=== PATIENT | female | born 1985 | race Caucasian/White ===

== ENCOUNTER 2018-04-08 18:29 | Emergency (ER) | payer BC ==
[2018-04-08] MEDS ORDERED: Sodium Chloride 0.9% 1,000 ML IV ONE (19:34)
[2018-04-08] MEDS ORDERED: Sodium Chloride 0.9% 10 ML Syringe FLUSH PRN (19:34)
[2018-04-08] MEDS ORDERED: LORazepam 2 MG/ML SDV IVPUSH ONE (19:34)
--- NOTE | 2018-04-08 22:30 | EDM.PDOC ---
ED HPI GENERAL MEDICAL PROBLEM - General Chief Complaint: Neurological Problem Stated Complaint: DIZZY/NUMB PARTS OF FACE Time Seen by Provider: 04/08/18 19:09 Source of Information: Reports: Patient History Limitations: Reports: No Limitations - History of Present Illness INITIAL COMMENTS - FREE TEXT/NARRATIVE: Patient is a 33-year-old female with a history of PMDD and hypothyroidism. Patient currently on sertraline and levothyroxine. She presents to the ED with a few day history of intermittent dizziness with standing with numbness and tingling to her lips and face. States has as of recent she's been under a lot more stress with taking care of foster kids at home and also with work. Patient works at home on the [email or web address] and states 17 coworkers were forced to retire or were laid off. She is under a lot more stress at work since she is doing more with less. She states she's never been stressed like this in her life before. States more days than not she is not excited about going to work. While at work she feels bland and is just doing her job. As she states she is just there. While working performing physical activities there are times when with standing she becomes dizzy, hot, and develops some tingling to her face and lips. Symptoms go away quickly with rest. She denies any difficulty walking, weakness to her upper and lower extremities, facial droop, slurred speech, vision changes , or difficulty swallowing. She denies any headaches, shortness of breath, chest pain, or fever. At times with the dizziness she experiences tunnel vision. There is no history of syncopal episode. She denies any palpitations or irregular heartbeat. She believes this most likely stress related. Last menstrual cycle was March 27, 2018. She does not smoke. Alcohol use is social. Recreational drug use none. She does not have a primary care provider here locally. - Related Data Allergies Allergy/AdvReac Type Severity Reaction Status Date / Time No Known Allergies Allergy Verified 04/08/18 18:38 Home Meds: Home Meds Levothyroxine 25 mcg PO DAILY 04/08/18 [History] Sertraline [Zoloft] 100 mg PO DAILY 04/08/18 [History] Past Medical History [employer] History: Reports: Social & Family History - Tobacco Use Smoking Status *Q: Never Smoker Second Hand Smoke Exposure: No - Caffeine Use Caffeine Use: Reports: Coffee - Recreational Drug Use Recreational Drug Use: No ED ROS GENERAL - Review of Systems Review Of Systems: See Below Constitutional: Reports: Decreased Appetite. Denies: Fever, Chills, Malaise, Weakness, Fatigue HEENT: Reports: No Symptoms Respiratory: Reports: No Symptoms Cardiovascular: Reports: No Symptoms GI/Abdominal: Reports: No Symptoms : Reports: No Symptoms Musculoskeletal: Reports: No Symptoms Skin: Reports: No Symptoms Neurological: Reports: Dizziness (no sensation of room spinning. ), Tingling ( face at times with increased stress. ). Denies: Headache Psychiatric: Reports: Anxiety. Denies: Depression ED EXAM, DIZZINESS - Physical Exam Exam: See Below Exam Limited By: No Limitations General Appearance: Alert, WD/WN, Anxious Eye Exam: Bilateral Eye: Normal Inspection, Nystagmus (none noted), PERRL Ears: Hearing Grossly Normal Nose: Normal Inspection Throat/Mouth: Normal Inspection, Normal Oropharynx, Normal Voice, No Airway Compromise Head Exam: Atraumatic, Normocephalic, Other (No sensory deficits noted on examination.) Neck: Normal Inspection, Supple, Non-Tender, Full Range of Motion Respiratory/Chest: No Respiratory Distress, Lungs Clear, Normal Breath Sounds, No Accessory Muscle Use, Chest Non-Tender Cardiovascular: Normal Peripheral Pulses, Regular Rate, Rhythm, No Murmur GI/Abdominal: Normal Bowel Sounds, Soft, Non-Tender Neurological: Alert, Normal Mood/Affect, Normal Dorsiflexion, CN II-XII Intact, Normal Plantar Flexion, Normal Gait, No Motor/Sensory Deficits, Oriented x 3, Other (No sensory deficits noted. No facial droop, slurred speech, tongue deviation. No weakness discrepancy as to the upper or lower extremities. Finger- nose a rapid alternating movements are intact. Gait is normal.) Back Exam: Normal Inspection Extremities: Normal Inspection, Non-Tender, No Pedal Edema Psychiatric: Normal Affect, Normal Mood Skin Exam: Warm, Dry, Intact, Normal Color Course - Vital Signs Last Recorded V/S: Last Vital Signs Temp 98.6 F 04/08/18 18:41 Pulse 82 04/08/18 18:41 Resp 20 04/08/18 22:40 BP 120/87 04/08/18 22:40 Pulse Ox 100 04/08/18 22:40 Orthostatic Blood Pressure [ 116/96 Standing] Orthostatic Blood Pressure [ 123/89 Sitting] Orthostatic Blood Pressure [ 123/71 Supine] - Orders/Labs/Meds Orders: Active Orders 24 hr Category Date Time Status Orthostatic Vital Signs [RC] ASDIRECTED Care 04/08/18 19:34 Active Peripheral IV Care [RC] . DIRECTED Care 04/08/18 19:34 Active Sodium Chloride 0.9% [Saline Flush] Med 04/08/18 19:34 Active 10 ml FLUSH ASDIRECTED PRN Peripheral IV Insertion Adult [OM.PC] Routine Oth 04/08/18 19:34 Ordered Medication Orders Sodium Chloride (Saline Flush) 10 ml FLUSH ASDIRECTED PRN PRN Reason: Keep Vein Open Last Admin: 04/08/18 19:56 Dose: 10 ml Labs: Laboratory Tests 04/08/18 04/08/18 04/08/18 Range/Units 19:30 19:30 20:06 WBC 9.59 (3.98-10.04) K/mm3 RBC 4.84 (3.98-5.22) M/mm3 Hgb 14.7 (11.2-15.7) gm/L Hct 43.6 (34.1-44.9) % MCV 90.1 (79.4-94.8) fl MCH 30.4 (25.6-32.2) pg MCHC 33.7 (32.2-35.5) g/dl RDW Std Deviation 41.6 (36.4-46.3) fL Plt Count 266 (182-369) K/mm3 MPV 9.9 (9.4-12.3) fl Neutrophils % (Manual) 52 (40-60) % Band Neutrophils % 0 (0-10) % Lymphocytes % (Manual) 40 (20-40) % Atypical Lymphs % 0 % Monocytes % (Manual) 4 (2-10) % Eosinophils % (Manual) 3 (0.7-5.8) % Basophils % (Manual) 1 (0.1-1.2) Platelet Estimate Adequate Plt Morphology Comment Normal RBC Morph Comment Normal Sodium (136-145) mEq/L Potassium (3.5-5.1) mEq/L Chloride (98-107) mEq/L Carbon Dioxide (21-32) mEq/L Anion Gap (5-15) BUN (7-18) mg/dL Creatinine (0.55-1.02) mg/dL Est Cr Clr Drug Dosing mL/min Estimated GFR (MDRD) (>60) mL/min BUN/Creatinine Ratio (14-18) Glucose (74-106) mg/dL Calcium (8.5-10.1) mg/dL Total Bilirubin (0.2-1.0) mg/dL AST (15-37) U/L ALT (14-59) U/L Alkaline Phosphatase (46-116) U/L C-Reactive Protein (<1.0) mg/dL Total Protein (6.4-8.2) g/dl Albumin (3.4-5.0) g/dl Globulin gm/dL Albumin/Globulin Ratio (1-2) TSH 3rd Generation (0.358-3.74) uIU/mL Urine Color Yellow (Yellow) Urine Appearance Clear (Clear) Urine pH 6.0 (5.0-8.0) Ur Specific [place] > or = 1.030 (1.005-1.030) Urine Protein Negative (Negative) Urine Glucose (UA) Negative (Negative) Urine Ketones Negative (Negative) Urine Occult Blood Negative (Negative) Urine Nitrite Negative (Negative) Urine Bilirubin Negative (Negative) Urine Urobilinogen 0.2 (0.2-1.0) Ur Leukocyte Esterase Negative (Negative) Urine RBC 0-5 (0-5) /hpf Urine WBC 0-5 (0-5) /hpf Ur Epithelial Cells 0-5 (0-5) /hpf Urine Bacteria Rare (FEW) /hpf Urine Mucus Not seen (FEW) /hpf Urine HCG, Qual Negative (NEGATIVE) 04/08/18 Range/Units 20:06 WBC (3.98-10.04) K/mm3 RBC (3.98-5.22) M/mm3 Hgb (11.2-15.7) gm/L Hct (34.1-44.9) % MCV (79.4-94.8) fl MCH (25.6-32.2) pg MCHC (32.2-35.5) g/dl RDW Std Deviation (36.4-46.3) fL Plt Count (182-369) K/mm3 MPV (9.4-12.3) fl Neutrophils % (Manual) (40-60) % Band Neutrophils % (0-10) % Lymphocytes % (Manual) (20-40) % Atypical Lymphs % % Monocytes % (Manual) (2-10) % Eosinophils % (Manual) (0.7-5.8) % Basophils % (Manual) (0.1-1.2) Platelet Estimate Plt Morphology Comment RBC Morph Comment Sodium 139 (136-145) mEq/L Potassium 4.1 (3.5-5.1) mEq/L Chloride 106 (98-107) mEq/L Carbon Dioxide 25 (21-32) mEq/L Anion Gap 12.1 (5-15) BUN 13 (7-18) mg/dL Creatinine 1.0 (0.55-1.02) mg/dL Est Cr Clr Drug Dosing 71.33 mL/min Estimated GFR (MDRD) > 60 (>60) mL/min BUN/Creatinine Ratio 13.0 L (14-18) Glucose 99 (74-106) mg/dL Calcium 8.8 (8.5-10.1) mg/dL Total Bilirubin 0.4 (0.2-1.0) mg/dL AST 16 (15-37) U/L ALT 23 (14-59) U/L Alkaline Phosphatase 70 (46-116) U/L C-Reactive Protein 0.5 (<1.0) mg/dL Total Protein 7.4 (6.4-8.2) g/dl Albumin 3.9 (3.4-5.0) g/dl Globulin 3.5 gm/dL Albumin/Globulin Ratio 1.1 (1-2) TSH 3rd Generation 1.765 (0.358-3.74) uIU/mL Urine Color (Yellow) Urine Appearance (Clear) Urine pH (5.0-8.0) Ur Specific [place] (1.005-1.030) Urine Protein (Negative) Urine Glucose (UA) (Negative) Urine Ketones (Negative) Urine Occult Blood (Negative) Urine Nitrite (Negative) Urine Bilirubin (Negative) Urine Urobilinogen (0.2-1.0) Ur Leukocyte Esterase (Negative) Urine RBC (0-5) /hpf Urine WBC (0-5) /hpf Ur Epithelial Cells (0-5) /hpf Urine Bacteria (FEW) /hpf Urine Mucus (FEW) /hpf Urine HCG, Qual (NEGATIVE) Meds: Medications Generic Name Dose Route Start Last Admin Trade Name Freq PRN Reason Stop Dose Admin Sodium Chloride 10 ml 04/08/18 19:34 04/08/18 19:56 Saline Flush FLUSH 10 ml ASDIRECTED PRN Administration Keep Vein Open Discontinued Medications Generic Name Dose Route Start Last Admin Trade Name Ambrocio PRN Reason Stop Dose Admin Sodium Chloride 1,000 mls @ 999 mls/hr 04/08/18 19:34 04/08/18 20:08 Normal Saline IV 04/08/18 20:34 999 mls/hr ONETIME ONE Administration Lorazepam 0.5 mg 04/08/18 19:34 04/08/18 20:07 Ativan IVPUSH 04/08/18 19:35 0.5 mg ONETIME ONE Administration - Re-Assessments/Exams Free Text/Narrative Re-Assessment/Exam: Patient has vague symptoms of intermittent dizziness with standing, exertion, and facial tingling while at work. Symptoms relieved with rest. She has no other symptoms per history of present illness and/or examination. Patient states she's been under a lot stress recently with work and home life. She's not been sleeping well. She is lacking motivation with with attending work every day. She denies any family history of autoimmune disease such as MS. IV established with normal saline 1 L IV bolus and Ativan 0.5 mg IVP. Orthostatic vital signs will be obtained. Orthostatic vitals were negative. Labs reviewed: CBC and chemistry panel were essentially normal. UA negative. HCG negative. TSH 1.765. CRP 0.5. 2220 Reassessment, patient is feeling much better after the IV fluids. She's rested for about a 1.5 hours since receiving the Ativan. Suspect cause of patient's symptoms is stress related and patient and agree with this. Patient has not complained of palpations and or irregular heart beats thus no holter monitor will be obtained. I have offered to provide a day off from work tomorrow to which the patient refuses. She states they've had 17 people fired from work and she does not want to risk her job for calling in sick. Patient will follow-up with her PCP this following week for reevaluation. Return precautions discussed with the patient.The patient remained hemodynamically stable while under my care in the E.D. I discussed the concerning symptoms for which to returnto the E.D. with the patient/family. The patient/family verbalized understanding. All questions were answered. Departure - Departure Time of Disposition: 22:33 Disposition: Home, Self-Care 01 Condition: Good Clinical Impression: Dizziness, nonspecific, Facial tingling sensation - Discharge Information Instructions: Dizziness Referrals: PCP,None [Primary Care Provider] - Forms: ED Department Discharge Additional Instructions: Suspect cause of dizziness is more likely stress related. Please start taking care of herself. Push the fluids. Ensure balanced diet. Continue to perform things that you enjoyed doing. Exercise on a regular basis. Please follow up with her PCP for further examination this coming week. Return to the ED if you develop any new or worsening symptoms. - My Orders Last 24 Hours: My Active Orders 04/08/18 19:34 Orthostatic Vital Signs [RC] ASDIRECTED Peripheral IV Care [RC] . DIRECTED Sodium Chloride 0.9% [Saline Flush] 10 ml FLUSH ASDIRECTED PRN Peripheral IV Insertion Adult [OM.PC] Routine - Assessment/Plan Last 24 Hours: My Active Orders 04/08/18 19:34 Orthostatic Vital Signs [RC] ASDIRECTED Peripheral IV Care [RC] . DIRECTED Sodium Chloride 0.9% [Saline Flush] 10 ml FLUSH ASDIRECTED PRN Peripheral IV Insertion Adult [OM.PC] Routine
== END 2018-04-08 22:43 | disposition home or self-care (01) ==
LOC: JD.ED 18:29
DX: R20.2 Paresthesia of skin (principal); R42 Dizziness and giddiness; E03.9 Hypothyroidism, unspecified; Z79.899 Other long term (current) drug therapy
CPT/HCPCS: 36415; 80053; 81001; 81025; 84443; 85007; 85027; 86140; 96361; 96374; 99284; J2060; J7040; J7050